=== PATIENT | male | born 1945 | race Caucasian/White ===

== ENCOUNTER 2019-07-13 09:58 | Inpatient (IN) | payer OTHER ==
[~2019-07-13] VITALS: Ht 177.8 cm; Wt 99.4 kg
--- NOTE | ~2019-07-13 | P ---
[facility] [place] [address] PROCEDURE REPORT Name: AKBAR ABDI Room #: 211-P [facility] IN M.R.#: [id number] Admission: 07/13/19 Attend Phys: Allan Pedro MD Discharge: 07/16/19 Date of : 43 Report #: [id number] THIS REPORT FOR: //name// CC: Billy Pedro INPATIENT UPPER ENDOSCOPY BRIEF HISTORY: The patient is a 74-year-old male who was admitted with atypical chest pain. He has undergone cardiac evaluation including cardiac catheterization. He has a history of coronary artery disease with previous bypass surgery and his heart catheterization findings were stable. He has very rare episodes of heartburn. He does take an aspirin daily. PREOPERATIVE DIAGNOSIS: Atypical chest pain. POSTOPERATIVE DIAGNOSES: 1. A 5 mm benign appearing antral ulcer. 2. Scattered gastric erosions. MEDICATIONS: Deep sedation with propofol per anesthesia. SPECIMEN: Biopsies of ulcer. ESTIMATED BLOOD LOSS: 3 mL. PROCEDURE: EGD with biopsy. FINDINGS: Prior to propofol sedation, procedure of upper endoscopy was discussed with the patient as well as potential risks and its complications. He indicates he understands and desires to proceed. DESCRIPTION OF PROCEDURE: With the patient in left lateral decubitus position, the Olympus video endoscope was inserted in cervical esophagus under direct vision without difficulty. Examination of this organ through its entire length revealed normal esophageal mucosa down the squamocolumnar junction. Squamocolumnar junction was inspected and noted to be unremarkable. There was no evidence of esophagitis or Edras mucosa. A significant hiatus hernia was not seen. Scope was advanced into the stomach, was examined on end view as well as retroflexed views. Examination of the antrum revealed several erosions. There was one small benign appearing gastric ulcer. White exudate was seen at the base. It was less than 5 mm in greatest dimension. Multiple biopsies were obtained. Upon examination of the proximal stomach with end views as well as retroflexed views, he was found to have scattered erosions, but no ulcers or bleeding lesions. No mass lesions were seen in the cardia. The pylorus, duodenal bulb, and postbulbar duodenal sweep were all inspected and noted to be [facility] [address] [place] [address] PROCEDURE REPORT Name: AKBAR ABDI Room #: 211-P DIS IN M.R.#: [id number] Admission: 07/13/19 Attend Phys: Allan Pedro MD Discharge: 07/16/19 Date of : 43 Report #: [id number] unremarkable. At that point, the scope was slowly withdrawn and careful circumferential views confirmed the above findings. The patient tolerated the procedure well. DISPOSITION: The patient with atypical chest pain. He was found to have a small gastric ulcer. He does take an aspirin for his heart disease. We will have him use omeprazole 20 mg daily for 6 weeks on as needed basis thereafter. The ulcer is small, it is not clear whether or not the ulcer is responsible for his atypical chest pain. It is also possibly he may have nonerosive reflux disease. We will see how he does on his PPI therapy. If symptoms continue, he is to return to see me in followup. Also, suggest a screening colonoscopy as an outpatient at a later date. By: 1120 [id number] Akbar Tovar MD /nt
[~2019-07-13 09:58] MED LIST: ASPIRIN EC81 M1 PO; ASPIRIN325 PO; AVODART0.5 MG PO; BACTROBAN CREAM30 G1 TOP; COLACE 100 MG100 MG PO; DIOVAN160 MG PO; DIOVAN40 MG; EFFIENT10 MG PO; FAMCYCLOVIR 50500 M1 PO; FERREX 150150 MG PO; IRBESARTAN150 MG PO; JALYN 0.5-0.41 EACH PO; LIPITOR40 MG PO; LOMOTIL TABLET1 EACH PO; NITROQUICK0.4 MG SL; PAIN & FEVER325 MG PO; PERCOCET PO; PHISOHEX148 ML; PROAIR HFA8.5 GM; PROVENTIL HFA6.7 G1 INH; TOPROL XL50 MG PO; UNICOMPLEX M TA1 TA1 PO; ZYRTEC10 MG PO
[2019-07-13 11:07] VITALS: BP 150/92
--- NOTE | 2019-07-13 11:47 | NUR ---
PT ARRIVED TO UNIT AT APPROX 1050 BY EMS. ALERT AND ORIENTED, VSS, O2 SATS WNL ON ROOM AIR. PT ARRIVED ON HEPARIN DRIP-- PHYSICIAN NOTIFIED OF PT ARRIVAL AND OF HEPARIN DRIP-- WAS TOLD ORDERS WILL BE PUT IN. ADMISSION COMPLETE, CONSENTS SIGNED. TELE STRIP PRINTED AND DOCUMENTED. PT READ THROUGH AND SIGNED TELEMETRY SHEET, COMMUNICATES UNDERSTANDING. PT KEPT NPO UNTIL CARDIOLOGY SEES PT. DENIES NEEDS AT THIS TIME. WILL CONT TO MONITOR AND FOLLOW POC.
[2019-07-13] MEDS ORDERED: PRAVASTATIN SOD40 MG PO (12:22)
[2019-07-13] MEDS ORDERED: FLOMAX0.4 MG PO (12:22)
[2019-07-13] MEDS ORDERED: PROSCAR 5MG TABL5 M1 PO (12:23)
[2019-07-13] MEDS ORDERED: FLONASE 0.05%50 MCG NASAL (12:24)
[2019-07-13 16:23] VITALS: BP 113/67
--- NOTE | 2019-07-13 17:01 | NUR ---
PT CONTINES TO BE ALERT AND ORIENTED, VSS, DENIES CHEST PAIN. O2 SATS WNL ON ROOM AIR. PT SEEN BY CARDIOLOGY, NO PLANS FOR CATH INTERVENTION AT THIS TIME PER CARDIOLOGY. HEPARIN DRIP CONTINUES. FAMILY IN ROOM WITH PT THROUGHOUT SHIFT. PT CURRENTLY IN BED WITH FAMILY AT BEDSIDE. DENYING NEEDS AT THIS TIME. WILL CONTINUE TO MONITOR AND FOLLOW POC.
[2019-07-13 20:06] VITALS: BP 112/69
[2019-07-14 00:36] VITALS: BP 108/63
[2019-07-14 04:13] LABS: PROTIME 10.4 Seconds (9.3-11.4)
[2019-07-14 04:14] LABS: HEMATOCRIT 42.6 % (42.0-52.0); HEMOGLOBIN 14.6 gm/dL (14.0-18.0); MCH 31.7 pg (26.0-34.0); MCHC 34.3 g/dL (28.0-37.0); MCV 92.4 fL (80.0-100.0); RBC 4.61 mil/uL (4.50-6.00); RDW 12.7 % (10.5-14.5); WBC 5.8 thou/uL (4.0-11.0)
[2019-07-14 04:20] LABS: CALCIUM 8.7 mg/dL (8.5-10.1); POTASSIUM 4.2 mmol/L (3.5-5.1); TROPONIN-I 0.07 ng/mL (<0.06)
[2019-07-14 05:47] VITALS: BP 124/68
--- NOTE | 2019-07-14 07:41 | NUR ---
[facility]. PT/VITALS STABLE. DENIES ANY APIN. UP AD TOYA. ASSESSMETN CHARTED. PROGRESSING WELL WITH POC. PT IS ON HEPARIN DRIP. NO CP OR ANY OTHER DISTRESS NOTED. WILL CONTINUE TO MONITRO AND FOLLOW WITH POC
[2019-07-14 08:45] VITALS: BP 115/76
--- NOTE | 2019-07-14 11:23 | EKG ---
[address] [address] ELECTROCARDIOGRAM REPORT Name: AKBAR ABDI Room #: 211-P ADM IN M.R.#: [id number] Admission: 07/13/19 Attend Phys: Allan Pedro MD Discharge: Date of : 43 Report #: [id number] THIS REPORT FOR: //name// [facility] Test Date: 2019-07-13 Test Time: 11:34:10 Pat Name: AKBAR ABDI Department: Room: 211 P Gender: M Site Safety Coordinator: VICKEY : 1945 Requested By: Allan Pedro Order Number: [id number] MD: Wm Christina Measurements Intervals [place] Rate: 59 P: 13 NV: 175 QRS: -4 QRSD: 146 T: 60 QT: 444 QTc: 440 Interpretive Statements Sinus rhythm Right bundle branch block Compared to ECG 04/04/2014 05:28:08 Sinus arrhythmia no longer present Electronically Signed On 07-14-2019 11:23:40 PUBLIC SAFETY TEACHER by Wm Christina [email or web address] <ELECTRONICALLY SIGNED> By: Wm Christina MD 07/14/19 1123 1134 113 Wm Christina MD /LEAH
--- NOTE | 2019-07-14 11:27 | EKG ---
[address] [address] ELECTROCARDIOGRAM REPORT Name: AKBAR ABDI Room #: 211-P ADM IN M.R.#: [id number] Admission: 07/13/19 Attend Phys: Allan Pedro MD Discharge: Date of : 43 Report #: [id number] THIS REPORT FOR: //name// [facility] Test Date: 2019-07-14 Test Time: 07:21:47 Pat Name: AKBAR ABDI Department: Room: 211 P Gender: M Occupational Therapy Instructor: Rivera ENNIS : 1945 Requested By: Allan Pedro Order Number: [id number] MD: Wm Christina Measurements Intervals [place] Rate: 91 P: 24 OK: 203 QRS: 44 QRSD: 139 T: 56 QT: 400 QTc: 493 Interpretive Statements Sinus rhythm Right bundle branch block Compared to ECG 04/04/2014 05:28:08 Sinus arrhythmia no longer present Electronically Signed On 07-14-2019 11:27:03 BUILDING GUARD DEPUTY SHERIFF by Wm Christina [email or web address] <ELECTRONICALLY SIGNED> By: Wm Christina MD 07/14/19 1127 0 0 Wm Christina MD /LEAH
[2019-07-14 12:40] VITALS: BP 120/72
[2019-07-14 16:25] VITALS: BP 111/70
--- NOTE | 2019-07-14 16:36 | NUR ---
ASSUMMED PT CARE AT APPROXIMATELY 0700. PT A&O X4. ASSESSMENT CHARTED. FALL PRECAUTIONS IN PLACE. VITAL SIGNS STABLE. PT DENIES HAVING CHEST PAIN. PT DENIES HAVING SOB. PT DENIES HAVING ACUTE PAIN. PT AND FAMILY EDUCATED ABOUT POC. PT AND FAMILY STATED UNDERSTANDING AND DENIED HAVING FURTHER QUESTIONS. PT'S CONCENT FORM SIGNED. PT COMFORTABLE IN BED. PT DENIES HAVING FURTHER CONCERNS.
[2019-07-14 20:28] VITALS: BP 122/67
[2019-07-15 03:14] VITALS: BP 115/70
[2019-07-15 05:40] LABS: BASOPHILS 1.1 % (0.0-2.0); EOSINOPHILS 4.7 % (0.0-3.0); HEMATOCRIT 41.4 % (42.0-52.0); HEMOGLOBIN 14.1 gm/dL (14.0-18.0); LYMPHOCYTES 27.5 % (24.0-44.0); MCH 31.1 pg (26.0-34.0); MCHC 33.9 g/dL (28.0-37.0); MCV 91.6 fL (80.0-100.0); MONOCYTES 8.7 % (1.0-8.0); PLATELET COUNT 185 thou/uL (150-400); RBC 4.52 mil/uL (4.50-6.00); WBC 5.1 thou/uL (4.0-11.0)
[2019-07-15 05:48] LABS: APTT 57.8 Seconds (24.5-32.8); PROTIME 10.8 Seconds (9.3-11.4)
[2019-07-15 06:10] LABS: ALBUMIN 3.3 g/dL (3.4-5.0); ANION GAP 11 mmol/L (7-16); BUN 18 mg/dL (7-18); CHLORIDE 102 mmol/L (98-107); CHOLESTEROL 154 mg/dL (<200); CO2 25 mmol/L (21-32); CREATININE 0.9 mg/dL (0.7-1.3); GLUCOSE 86 mg/dL (74-106); HDL CHOLESTEROL 34 mg/dL (>40); LDL CHOLESTEROL 97 mg/dL (<100); POTASSIUM 3.9 mmol/L (3.5-5.1); SGOT 18 U/L (15-37); SGPT 14 U/L (30-65); SODIUM 138 mmol/L (136-145); TC:HDL 4.5 Ratio (Not establshd); TOTAL BILIRUBIN 0.4 mg/dL (<0.1-1.0); TOTAL PROTEIN 6.4 g/dL (6.4-8.2); TRIGLYCERIDE 119 mg/dL (<150); VLDL 24 mg/dL (<40)
[2019-07-15 06:11] LABS: SERUM ASSESSMENT Clear
[2019-07-15 07:23] VITALS: BP 131/70
--- NOTE | 2019-07-15 07:35 | NUR ---
ASSUMED PT CARE AT 1900. VSS. PT A&0X4. PT DENIED CHEST PAIN ALL NIGHT, APPT CHECKED 2X THIS SHIFT AND WAS THERAPEUTIC SO NO CHANGE TO HEPARIN RATE. PT IS STABLE, IN ROOM NO COMPLAINTS OF DISCOMFORT. POSSIBLE CATH TODAY? CONSENTS SIGNED, WILL CONTINUE TO MONITOR PER POC.
--- NOTE | 2019-07-15 07:49 | EKG ---
[address] [place] [place] [address] ELECTROCARDIOGRAM REPORT Name: AKBAR ABDI Room #: 211-P ADM IN M.R.#: [id number] Admission: 07/13/19 Attend Phys: Allan Pedro MD Discharge: Date of : 43 Report #: [id number] THIS REPORT FOR: //name// [facility] Test Date: 2019-07-15 Test Time: 07:15:19 Pat Name: AKBAR ABDI Department: Room: 211 P Gender: M Volunteer Firefighter: TONY : 1945 Requested By: Olive Epstein Order Number: [id number] MD: Tino Vasquez Measurements Intervals [place] Rate: 62 P: 73 GA: 163 QRS: 15 QRSD: 148 T: -5 QT: 445 QTc: 452 Interpretive Statements Sinus rhythm Right bundle branch block Compared to ECG 07/14/2019 07:21:47 No significant changes Electronically Signed On 07-15-2019 7:49:40 REVERBERATORY FURNACE OPERATOR by Tino Vasquez [email or web address] <ELECTRONICALLY SIGNED> By: Tion Vasquez MD, [facility] 07/15/19 0749 D: [id number] 4 Tino Vasquez MD, FAC /EPI
--- NOTE | 2019-07-15 09:23 | CATHLAB ---
[facility] [address] [place] [address] INVASIVE PROCEDURE REPORT Name: AKBAR ABDI Room #: 211-P ADM IN M.R.#: [id number] Admission: 07/13/19 Attend Phys: Allan Pedro MD Discharge: Date of : 43 Report #: [id number] THIS REPORT FOR: //name// APPROVED REPORT Study performed: 07/15/2019 07:41:25 Patient Details Patient Status: In-Patient Room #: The patient is a 74 year-old male Event Personnel Tino Vasquez Airplane Technician, Ya Patel RN, Elizabeth Dutton Monitor, Junior Charles RTR Scrub Procedures Performed Left Heart Cath Coronaries, Bypass Grafts [id number] CCORCABG Indication Chest pain Procedure Narrative The Right Groin^ was infiltrated with 1% Lidocaine subcutaneous anesthesia. A 6 FR sheath was inserted into the RFA^. Coronary angiography was performed using coronary diagnostic catheters. The right coronary system was accessed and visualized with a JR4 catheter. The left coronary system was accessed and visualized with a JL4 catheter. The left ventricle was accessed and visualized with a PIGTAIL catheter. Left ventricular/Aortic Valve gradient assessed via catheter pullback. Closure device was deployed with a 6 Fr 6F/7F MYNX CLOSURE DEVICE. The patient tolerated the procedure well and there were no complications associated with the procedure. There was no hematoma. STEWART WITH ROSIE-RCA GRAFT WITH RCB MULTIPLE VIEWS TAKEN Intraoperative Conscious Sedation Sedation start time: 8.05 Case end Time: 8.40 Fentanyl 50 mcg Versed 1 mg Fluoro Time: 6.90 minutes Dose: DAP 26720.00 cGycm2 1875 mGy Contrast Type and Amount: Omnipaque 210 ml [facility] [address] [place] [address] INVASIVE PROCEDURE REPORT Name: AKBAR ABDI Room #: 211-P [facility] IN ..#: [id number] Admission: 07/13/19 Attend Phys: Allan Pedro MD Discharge: Date of : 43 Report #: [id number] Coronary Angiography The patient's coronary anatomy is right dominant. Diagnostic Cath Left Main Normal left main LAD Occlusion of the LAD at its origin. Patent left internal mammary to the LAD Circumflex Occluded high first marginal branch. Mild proximal circumflex plaquing 20-30% Patent sequential vein graft to the diagonal, ramus branch, and first OM OM2 Distally arising second and third marginal branches, angiographically normal Right Coronary High-grade ostial and mid right coronary disease. R PDA Mild PDA plaquing. Widely patent saphenous vein graft to the distal right coronary Left Ventriculography The left ventricle is normal in size with normal contractility. The left ventricular ejection fraction is estimated to be 60-65%. Left ventricular wall motion abnormalities are not present. There is no mitral insufficiency. Hemodynamics The aortic pressure is 109/54 mmHg with a mean of 75 mmHg. The left ventricular pressure is 107/9 mmHg with a mean of mmHg. The left ventricular end diastolic pressure is 15 mmHg. There was no gradient across the aortic valve upon pullback. Pullback from the left ventricle to the aorta revealed no gradient across the aortic valve. Conclusion 1. Normal global and regional left ventricular systolic function. EF 65% 2. Severe multivessel coronary disease 3. Patent left internal mammary to the LAD 4. Widely patent sequential saphenous vein graft to first diagonal, ramus branch, and OM1 5. Patent SVG to distal right coronary Recommendations Aggressive Medical Therapy <ELECTRONICALLY SIGNED> By: Tino Vasquez MD, FACC 07/15/19922 2 2 Tino Vasquez MD, FACC /INF
[2019-07-15 15:48] VITALS: BP 126/62
[2019-07-15 20:17] VITALS: BP 136/74
[2019-07-16 01:07] VITALS: BP 134/69
--- NOTE | 2019-07-16 04:48 | NUR ---
ASSESSMENT DOCUMENTED.PT BEEN RESTING IN NO ACUTE DISTRESS.A/OX4.VSS.S/P CARDAC LEANNA W/O INTERVENTIONS.RIGHT GROIN WITH CDI DRESSING.NO HEMATOMA.PT BEEN UP INDEPENDENTLY TO BR,VOIDING W/O DIFFICULTIES.NPO AFTER MIDNIGHT FOR EGD THIS AM.PT DENIES ANY NEEDS AT THIS TIME.SPOUSE AT BEDSIDE.WILL CONT TO MONITOR PER POC.
[2019-07-16 06:05] VITALS: BP 135/73
[2019-07-16 09:08] VITALS: BP 125/76
[2019-07-16 12:06] VITALS: BP 120/72
[2019-07-16] MEDS ORDERED: METOPROLOL SUCC25 M1 PO (12:14)
[2019-07-16] MEDS ORDERED: PROTONIX 20 MG20 M1 PO (12:14)
[2019-07-16 13:44] VITALS: BP 120/72
--- NOTE | 2019-07-16 14:17 | NUR ---
ASSUMED CARE AT SHIFT CHANGE ALERT AND ORIENTED. DENEIS ANY CP OR DISCOMFORT. RT GRION D/C/I AND PATIENT REPORTED TENDERNESS. EGD DONE TODAY. DISCHARGE AND MEDICATION INSTRUCTIONS GIVEN TO PT AND SPOUSE.
--- NOTE | 2019-07-17 17:06 | PATH ---
[facility] [address] [place] [address] PATHOLOGY RPT PROCEDURE Name: AKBAR PERSAUD Room #: 211-P DIS IN M.R.#: [id number] Admission: 07/13/19 Date of : 43 Discharge: 07/16/19 Report #: [id number] Path Case #: [id number] [facility] Accession Number: [id number] . 01 Material submitted: . stomach - BIOPSY OF GASTRIC ULCER . 01 Clinical history: . Noncardiac chest pain. . 02 Diagnosis: Gastric mucosa, gastric ulcer, endoscopic biopsy: - Mild reactive gastropathy associated with hyperplastic features. - Negative for intestinal metaplasia, atrophy or active ulceration. - Negative for Helicobacter pylori (properly controlled immunohistochemical stain performed). (IUV:promotion manager; 07/17/2019) MBR 07/17/2019 1337 Local . 02 Electronically signed: . Selam Mejia MD, Pathologist NPI- [id number] . 01 Gross description: . Received in formalin labeled "Akbar Persaud, BX of gastric ulcer" is a 0.7 x 0.3 x 0.1 cm aggregate of parker-brown mucosa fragments. The specimen is submitted in A1. ([facility]; 07/16/2019) [facility] 07/16/2019 1809 Local . 02 Pathologist provided ICD-10: K31.9 . 02 CPT . 370226, L66505 Specimen Comment: A courtesy copy of this report has been sent to [phone], [phone] Specimen Comment: [phone], Specimen Comment: Report sent to ,DR LEWIS / DR NÚÑEZ Performed at: [address], [place] [id number] MD Burt Sarabia MD Phone: [phone] Performed at: [address] [id number] MD Selam Mejia MD Phone: [phone]
--- NOTE | 2019-07-18 12:27 | HC ---
[facility] [place] [address] CONSULTATION Name: AKBAR ABDI Room #: 211-P [facility] IN M.R.#: [id number] Admission: 07/13/19 Attend Phys: Allan Pedro MD Discharge: 07/16/19 Date of : 43 Report #: [id number] THIS REPORT FOR: //name// CC: Billy Pedro CARDIOLOGY CONSULTATION REASON FOR CONSULTATION: Chest pain. HISTORY OF PRESENT ILLNESS: The patient is a 74-year-old with history of coronary artery disease. He follows with Dr. Vasquez. He says he saw Dr. Vasquez maybe 1 or 2 weeks ago. EKG and lab work at that time were normal. The patient reports that yesterday, he was standing in line and was waiting to get a new phone, and he was very angry and started having chest pressure that radiated to his back. He reports it kind of felt like his prior heart attack. He said it lasted about 30 minutes and resolved on its own. He did not think much of this as he was pretty angry and thought this was likely what was causing it. This morning, he was lying in bed and again he had another episode of chest heaviness radiating to his back. This was not associated with any nausea, vomiting, diaphoresis or radiation to the neck or arm, etc. He is currently chest pain free. He denies palpitations, lightheadedness, presyncope, syncope, PND or orthopnea. PAST MEDICAL HISTORY: 1. Coronary artery disease, status post prior inferior IA with ostial RCA stent placed by Dr. Vasquez in 2011, and given severe disease noted at that time, he underwent CABG. 2. Hypertension. 3. Hyperlipidemia. 4. Carotid artery disease. 5. Nonsustained ventricular tachycardia. 6. Right bundle branch block. SOCIAL HISTORY: Does not smoke. FAMILY HISTORY: Noncontributory. ALLERGIES: PENICILLIN, HYDROCODONE. CURRENT MEDICATIONS: Include aspirin, heparin, losartan, finasteride, Lipitor and some allergy meds. REVIEW OF SYSTEMS: Twelve-point review of systems was performed and was negative other than what I mentioned above. PHYSICAL EXAMINATION: [facility] [address] [place] [address] CONSULTATION Name: AKBAR ABDI Room #: 211-P [facility] IN M.R.#: [id number] Admission: 07/13/19 Attend Phys: Allan Pedro MD Discharge: 07/16/19 Date of : 43 Report #: [id number] VITAL SIGNS: Reviewed. GENERAL: He is alert and oriented x 3, in no acute distress. HEENT: Oropharynx is clear. NECK: Supple. No thyromegaly. HEART: Regular rate and rhythm with no murmurs, rubs or gallops. LUNGS: Clear to auscultation bilaterally. ABDOMEN: Soft, nontender, nondistended with no hepatosplenomegaly. EXTREMITIES: No clubbing, cyanosis or edema. NEUROLOGIC: Cranial nerves 2-12 are intact. IMAGING: A 12-lead EKG shows sinus rhythm, right bundle branch block. No ischemia. LABORATORY DATA: Pending and troponin is 0.09, which is microscopically elevated. I reviewed his cath report from 01/15/2012. ASSESSMENT: 1. Chest pain. 2. Possible unstable angina. 3. Possible non-ST segment elevation myocardial infarction. PLAN: I will discuss the case with Dr. Vasquez, who can decide whether or not we go for cardiac catheterization versus nuclear stress test, given the very minimal troponin elevation. We will continue with heparin and aspirin, and I will give him some beta blockers. <ELECTRONICALLY SIGNED> By: Wm Christina MD 07/18/19 1227 1442 0012 Wm Christina MD /nt
== END 2019-07-16 15:55 | disposition home or self-care (01) | DRG 282 ==
LOC: 2N 09:58 → ENTRNSPT 07-16 15:02 → 2N 07-16 15:55
PROVIDERS: Nurse Practitioner; ADMIT Internal Medicine
DX: I21.4 Non-ST elevation (NSTEMI) myocardial infarction (principal); K25.9 Gastric ulcer, unspecified as acute or chronic, without hemorrhage or perforation; I25.110 Atherosclerotic heart disease of native coronary artery with unstable angina pectoris; I10 Essential (primary) hypertension; E78.5 Hyperlipidemia, unspecified; E78.00 Pure hypercholesterolemia, unspecified; M19.90 Unspecified osteoarthritis, unspecified site; N40.0 Benign prostatic hyperplasia without lower urinary tract symptoms; L40.9 Psoriasis, unspecified; Z95.5 Presence of coronary angioplasty implant and graft; Z88.0 Allergy status to penicillin; I25.2 Old myocardial infarction; Z88.8 Allergy status to other drugs, medicaments and biological substances; Z79.82 Long term (current) use of aspirin; Z85.828 Personal history of other malignant neoplasm of skin; Z87.891 Personal history of nicotine dependence; Z95.1 Presence of aortocoronary bypass graft
CPT/HCPCS: 10081; 62110; 62900; 70005

== ENCOUNTER → 2020-01-08 | Outpatient (CLI) | payer OTHER ==
[~2020-01-08] MED LIST changes: +FLOMAX0.4 MG PO; +FLONASE 0.05%50 MCG NASAL; +METOPROLOL SUCC25 M1 PO; +PRAVASTATIN SOD40 MG PO; +PROSCAR 5MG TABL5 M1 PO; +PROTONIX 20 MG20 M1 PO
== END ==
LOC: SJCVCIMAG 07:44
DX: R94.31 Abnormal electrocardiogram [ECG] [EKG] (principal); I45.10 Unspecified right bundle-branch block; I65.23 Occlusion and stenosis of bilateral carotid arteries; I25.810 Atherosclerosis of coronary artery bypass graft(s) without angina pectoris; I25.5 Ischemic cardiomyopathy; E78.5 Hyperlipidemia, unspecified; I47.2 Ventricular tachycardia; I10 Essential (primary) hypertension

== ENCOUNTER → 2020-07-15 | Outpatient (CLI) | payer OTHER | LOC: SJCVC 09:51 | PROVIDERS: ATTEND Internal Medicine | DX: I25.810 Atherosclerosis of coronary artery bypass graft(s) without angina pectoris (principal); R94.31 Abnormal electrocardiogram [ECG] [EKG]; I45.10 Unspecified right bundle-branch block; I25.5 Ischemic cardiomyopathy; I47.2 Ventricular tachycardia; I10 Essential (primary) hypertension; E78.5 Hyperlipidemia, unspecified; I65.23 Occlusion and stenosis of bilateral carotid arteries; Z95.1 Presence of aortocoronary bypass graft; Z79.899 Other long term (current) drug therapy; Z87.891 Personal history of nicotine dependence ==

== ENCOUNTER → 2021-01-11 | Outpatient (CLI) | payer OTHER | LOC: SJCVCIMAG 08:16 | PROVIDERS: ATTEND Internal Medicine | DX: R94.31 Abnormal electrocardiogram [ECG] [EKG] (principal); I49.8 Other specified cardiac arrhythmias; I45.10 Unspecified right bundle-branch block; I65.23 Occlusion and stenosis of bilateral carotid arteries; I25.810 Atherosclerosis of coronary artery bypass graft(s) without angina pectoris; I25.5 Ischemic cardiomyopathy; I47.2 Ventricular tachycardia; I10 Essential (primary) hypertension; E78.5 Hyperlipidemia, unspecified; Z79.82 Long term (current) use of aspirin; Z79.899 Other long term (current) drug therapy; Z87.891 Personal history of nicotine dependence; Z88.5 Allergy status to narcotic agent; Z88.0 Allergy status to penicillin ==

== ENCOUNTER → 2021-07-14 | Outpatient (CLI) | payer OTHER | LOC: SJCVC 09:36 | PROVIDERS: ATTEND Internal Medicine | DX: I45.10 Unspecified right bundle-branch block (principal); I11.9 Hypertensive heart disease without heart failure; R94.31 Abnormal electrocardiogram [ECG] [EKG]; R00.0 Tachycardia, unspecified; I25.5 Ischemic cardiomyopathy; E78.5 Hyperlipidemia, unspecified; I65.23 Occlusion and stenosis of bilateral carotid arteries; I25.810 Atherosclerosis of coronary artery bypass graft(s) without angina pectoris; E78.00 Pure hypercholesterolemia, unspecified; I25.2 Old myocardial infarction; N40.0 Benign prostatic hyperplasia without lower urinary tract symptoms; I34.0 Nonrheumatic mitral (valve) insufficiency; Z98.890 Other specified postprocedural states; Z88.0 Allergy status to penicillin; Z88.8 Allergy status to other drugs, medicaments and biological substances; Z87.891 Personal history of nicotine dependence; Z79.82 Long term (current) use of aspirin; Z79.899 Other long term (current) drug therapy ==